=== PATIENT | male | born 1975 | race Caucasian/White ===

== ENCOUNTER 2018-06-29 10:11 | Outpatient (CLI) | payer BC ==
--- NOTE | 2018-06-29 10:55 | RAD ---
RIGHT ELBOW TWO VIEWS: History: Pain. Comparison: None. FINDINGS: No joint effusion. No fracture. No malalignment. Soft tissues are unremarkable. IMPRESSION: Unremarkable right elbow two views. POS: [facility]
== END 2018-06-29 10:12 | disposition home or self-care (01) ==
LOC: RAD 10:11
PROVIDERS: ATTEND Urology
DX: M25.521 Pain in right elbow (principal)

== ENCOUNTER 2018-08-24 11:35 | Outpatient (CLI) | payer BC ==
--- NOTE | 2018-08-24 14:20 | MRI ---
MRI RIGHT ELBOW WITHOUT CONTRAST: HISTORY: Medial elbow pain. FINDINGS: The biceps and triceps tendons are normal in appearance. There are no signs of any intraarticular bodies. A small amount of joint fluid is seen. The lateral collateral ligament, the LUCL, and the common extensor tendons are all normal in appearan ce. There is some tendinosis of the common flexor tendon origin with some fluid density along the more an terior aspect of the common flexor tendon, which is at the attachment of the flexor carpi radialis mu scle. Changes are compatible with a low grade tear in this region. The underlying ulnar collateral ligament is intact. The ulnar nerve is normal in appearance. It is not enlarged and shows normal signal. IMPRESSION: Tendinosis changes of the common flexor tendon origin with some fluid density seen along the more sup erior and anterior border of the common flexor tendon. This is closer to the level of the flexor car pi radialis tendon and is suggestive of a small, low grade tear. This is at the level of the patient 's pain. POS: [facility]
== END 2018-08-24 11:36 | disposition home or self-care (01) ==
LOC: MRI 11:35
PROVIDERS: ATTEND Family Medicine
DX: M25.521 Pain in right elbow (principal); M25.821 Other specified joint disorders, right elbow; M67.921 Unspecified disorder of synovium and tendon, right upper arm

== ENCOUNTER 2019-03-28 05:02 | Emergency (ER) | payer BC ==
[2019-03-28] MEDS ORDERED: Acetaminophen 500 MG TAB ONE (06:17)
== END 2019-03-28 06:50 | disposition home or self-care (01) ==
LOC: ERS 05:02 → EEVIPCON 05:02 → ERS 06:50
DX: F10.129 Alcohol abuse with intoxication, unspecified (principal); R51 Headache; I10 Essential (primary) hypertension; F41.9 Anxiety disorder, unspecified; Z79.899 Other long term (current) drug therapy; V49.9XXA Car occupant (driver) (passenger) injured in unspecified traffic accident, initial encounter
CPT/HCPCS: 99284

== ENCOUNTER 2020-02-10 11:29 | Outpatient (CLI) | payer OTHER ==
--- NOTE | 2020-02-10 16:35 | RAD ---
CERVICAL SPINE FOUR VIEWS: History: Cervical radiculopathy. FINDINGS: Prior anterior fusion procedure noted with anterior plate and screws transfixing C5-6 with interbody implant. There is mild loss of disc space with mild degenerative change at the C3-4 level. Vertebral bodies maintain height and alignment. The other disc spaces are preserved. There is a fragment seen from the tip of the spinous process of T1 which is well corticated and sugge sts an old fracture. IMPRESSION: 1. Post-operative change at C5-6. 2. Mild degenerative disc changes at C3-4. POS: [facility]
== END 2020-02-10 11:30 | disposition home or self-care (01) ==
LOC: RAD 11:29
PROVIDERS: ATTEND Physician Assistant
DX: M48.02 Spinal stenosis, cervical region (principal); M50.10 Cervical disc disorder with radiculopathy, unspecified cervical region; Z98.1 Arthrodesis status
CPT/HCPCS: 72040